=== PATIENT | female | born 1950 | race Caucasian/White ===

== ENCOUNTER 2016-10-28 17:29 | Emergency (ER) | payer MEDICARE, OTHER ==
[~2016-10-28] VITALS: Ht 167.6 cm; Wt 113.0 kg
--- OUTSIDE RECORDS SUMMARY | 2016-10-28 17:12 | XMS REPORT | Continuity of Care Document ---
Author Author [facility] Organization [facility] Address Unknown Phone Unavailable Care Team Providers Care Check Examiner Name Role Phone CAMRON LONG MD PCP [phone] Insurance Providers Payer Name Policy Number Subscriber Name Relationship Medicare A And B [id number] Josefina Burgos 18 Self / Same As Patient Medicare Other [id number] Josefina Burgos 18 Self / Same As Patient [facility] [id number] Josefina Burgos 18 Self / Same As Patient Problems Medical Problems Problem Onset Date Status Fracture of rib 10/10/2013 Active Nausea 10/10/2013 Active Rib pain 10/10/2013 Active Paul's cyst of knee ~03/09/2015 Active Medications Medication Dose Route Sig Days/Qty Instructions Order Date Discontinued Date Status Vit D3 & K/Berberine Hcl/Hops THREE TIMES A DAY 10/10/13 Active Multivitamin DAILY 10/10/13 03/10/15 Discontinued Aspirin DAILY 10/10/13 03/10/15 Discontinued Atorvastatin DAILY 10/10/13 03/10/15 Discontinued Lisinopril (Zestril) DAILY 10/10/13 Active Vit C/Echin Purp/Herb11 DAILY 10/10/13 03/10/15 Discontinued Insulin Lispro Protam/Lispro Human 55 Units SQ WITH BREAKFAST Active Meloxicam DAILY 10/10/13 03/10/15 Discontinued Oxycodone Hcl 10 Mg ORAL EVERY 6 HOURS 20 Qty One po q6hrs prn severe pain 10/10/13 03/10/15 Discontinued Ondansetron 4 Mg ORAL EVERY 6 HOURS 10 Qty One po q6hr prn significant nausea 10/10/13 03/10/15 Discontinued Meloxicam 10 Gm MC DAILY 03/10/15 03/10/15 Discontinued Venlafaxine Hcl 75 Mg GT DAILY 03/10/15 03/10/15 Discontinued Venlafaxine Hcl 150 Mg ORAL DAILY 03/10/15 Active Letrozole 2.5 Mg ORAL DAILY 03/10/15 Active Tramadol Hcl 50 Mg ORAL EVERY 4HRS PRN PAIN 03/10/15 Active Denosumab 120 Mg SQ q 4 weeks 03/10/15 Active Docusate Sodium Unknown Dose ORAL NEEDED PRN CONSTIPATION Active Insulin Lispro Protam/Lispro Human 40 Unit SUBCUTANEOUS WITH SUPPER 03/10/15 Active Lovastatin 10 Mg ORAL DAILY 03/10/15 Active Acetaminophen/Hydrocodone Bitart 1 Tab ORAL EVERY 6 HOURS PRN Active Meloxicam 15 Mg ORAL DAILY 03/10/15 Active Social History No social history. Hospital Discharge Instructions No hospital discharge instructions. Plan of Care Discharge Date 03/10/15 3:24am Instructions/Education Provided Paul's Cyst (ED) Prescriptions See Medications Section Functional Status No functional status results. Allergies, Adverse Reactions, Alerts Allergen Type Severity Reaction Status Last Updated PENICILLIN Allergy Active 10/10/13 Immunizations No immunization records. Vital Signs Acute Vital Signs Vital Response Date/Time Temperature (Fahrenheit) 98.1 Pulse 73 bpm Respirations 20 Results Test Source Date Result Interp. Ref. Range Comments D-Dimer March 10, 2015 1:36am 0.42 ug/mL H 0.00-0.41 Results called to Arsen[facility]Perico read back the results. Called by Meena Gore at 0214 Verified by repeat testing Alanine Aminotransferase (ALT/SGPT) March 10, 2015 1:36am 31 U/L N 30-65 Albumin March 10, 2015 1:36am 3.9 g/dL N 3.4-5.0 Albumin/Globulin Ratio March 10, 2015 1:36am 1.392 N 1.1-1.8 Alkaline Phosphatase March 10, 2015 1:36am 106 U/L N 38-126 Anion Gap March 10, 2015 1:36am 11.8 MEQ/L N 3-15 Aspartate Amino Transf (AST/SGOT) March 10, 2015 1:36am 30 U/L N 15-37 BUN/Creatinine Ratio March 10, 2015 1:36am 22 H 10-20 Basophils # (Auto) March 10, 2015 1:36am 0.1 10^3uL Basophils (%) (Auto) March 10, 2015 1:36am 1 % N 0-2 Blood Urea Nitrogen March 10, 2015 1:36am 20 mg/dL H 7-18 C-Reactive Protein March 10, 2015 1:36am 1.60 mg/dL H 0.0-0.9 CA 27.29 November 07, 2013 12:34pm 21.7 U/mL <=38.0 The testing method is a chemiluminometric immunoassaymanufactured by Siem[employer] and performed on the [employer]'s [employer]. Values obtained with different assay methods or kits may be different and cannot be used interchangeably. Test results cannot be interpreted as absolute evidence for the presence or absence of malignant disease. Test Performed by: [facility] [place] [address] Direct Sales Professional: Fiordaliza Pressley, Ph.D. Calcium Level March 10, 2015 1:36am 9.5 mg/dL N 8.8-10.8 Calcium/Ionized Calcium Ratio March 10, 2015 1:36am 4.3 mg/dL N 3.8-4.6 Calculated Osmolality March 10, 2015 1:36am 270 mosm/L L 280-300 Carbon Dioxide Level March 10, 2015 1:36am 30 mmol/L H 22-29 Carcinoembryonic Antigen November 07, 2013 12:34pm 1.3 ng/mL 0.0-5.0 Normal Ranges For CEA;Males: Non Smokers: <3.4 ng/ml Smokers: <6.2 ng/ml Females: Non Smokers: <2.5 ng/ml Smokers: <4.9 ng/ml Chloride Level March 10, 2015 1:36am 101 mmol/L N 98-108 Cholesterol Level December 11, 2014 8:55am 169 mg/dL N 50-200 Cholesterol/HDL Ratio December 11, 2014 8:55am 3.7 N 0.0-5.0 Creatinine March 10, 2015 1:36am 0.93 mg/dL N 0.6-1.2 Eosinophils # (Auto) March 10, 2015 1:36am 0.3 10^3uL Eosinophils (%) (Auto) March 10, 2015 1:36am 4 % N 0-4 Estimat Glomerular Filtration Rate March 10, 2015 1:36am 73.0 Estimated GFR (Non- March 10, 2015 1:36am 60.3 Folate March 07, 2015 11:04am 13.2 ng/mL 7.0-31.4 Glucose Level March 10, 2015 1:36am 73 mg/dL DN 70-110 HDL Cholesterol December 11, 2014 8:55am 46 mg/dL N 40-60 Hematocrit March 10, 2015 1:36am 37.50 % N 35.00-45.00 Hemoglobin March 10, 2015 1:36am 12.8 g/dL N 12.0-15.5 Hemoglobin A1c March 07, 2015 11:05am 6.3 % H 4.0-6.0 LDL Cholesterol, Calculated December 11, 2014 8:55am 83 mg/dL N 50-130 Lymphocytes # (Auto) March 10, 2015 1:36am 2.6 X10^3 Lymphocytes (%) (Auto) March 10, 2015 1:36am 37 % N 20-46 Magnesium Level March 07, 2015 11:04am 2.2 mg/dL N 1.6-2.3 Mean Corpuscular Hemoglobin March 10, 2015 1:36am 31.4 PG N 26.0-34.0 Mean Corpuscular Hemoglobin Concent March 10, 2015 1:36am 34.1 g/dL N 31.0-37.0 Mean Corpuscular Volume March 10, 2015 1:36am 92 FL N 80-100 Mean Platelet Volume March 10, 2015 1:36am 9.6 FL H 6.0-9.5 Monocytes # (Auto) March 10, 2015 1:36am 0.9 X10^3 Monocytes (%) (Auto) March 10, 2015 1:36am 12 % H 3-11 Neutrophils # (Auto) March 10, 2015 1:36am 3.3 X10^3 Neutrophils (%) (Auto) March 10, 2015 1:36am 47 % L 51-67 Platelet Count March 10, 2015 1:36am 294 10^3uL N 150-450 Potassium Level March 10, 2015 1:36am 3.8 mmol/L N 3.5-5.1 Red Blood Count March 10, 2015 1:36am 4.08 10^6uL N 4.00-5.00 Red Cell Distribution Width March 10, 2015 1:36am 12.5 % N 11.8-15.6 Sodium Level March 10, 2015 1:36am 139 mmol/L N 135-150 Thyroid Stimulating Hormone (TSH) December 11, 2014 8:55am 1.25 UIU/mL N 0.46-4.68 Thyroxine (T4) December 11, 2014 8:55am 5.5 ug/dL 4.8-11.7 Total Bilirubin March 10, 2015 1:36am 0.3 mg/dL N 0.1-1.0 Total Creatine Kinase December 11, 2014 8:55am 109 U/L N 30-135 Total Protein March 10, 2015 1:36am 6.7 g/dL N 6.4-8.5 Triglycerides Level December 11, 2014 8:55am 200 mg/dL H 10-150 Urine Bacteria November 27, 2013 7:30am None seen /HPF Urine Bilirubin November 27, 2013 7:30am Negative Negative Urine Blood November 27, 2013 7:30am Negative Negative Urine Clarity November 27, 2013 7:30am Clear Urine Collection Type November 27, 2013 7:30am Clean catch Urine Color November 27, 2013 7:30am Yellow Urine Glucose (UA) November 27, 2013 7:30am Negative Negative Urine Ketones November 27, 2013 7:30am Negative Negative Urine Leukocyte Esterase November 27, 2013 7:30am Trace H Negative Urine Mucus November 27, 2013 7:30am 4+ H Urine Nitrite November 27, 2013 7:30am Negative Negative Urine Protein November 27, 2013 7:30am Negative Negative Urine RBC November 27, 2013 7:30am 0-2 /HPF Urine Random Microalbumin December 11, 2014 8:55am 2.8 mg/dL H 0.0-1.7 Urine Specific [place] November 27, 2013 7:30am 1.025 1.005-1.030 Urine Squamous Epithelial Cells November 27, 2013 7:30am 5-10 /LPF Urine Urobilinogen November 27, 2013 7:30am 0.2 mg/dL 0.2-1.0 Urine WBC November 27, 2013 7:30am 5-10 /HPF H Urine pH November 27, 2013 7:30am 6.0 5.0 - 8.0 VLDL Cholesterol November 27, 2013 7:30am 34 mg/dL H 0-28 VLDL Cholesterol, Calculated December 11, 2014 8:55am 40 mg/dL N 4.00- 40.00 Vitamin B12 Level March 07, 2015 11:04am 435 pg/mL 213-816 Vitamin D 25-Hydroxy December 11, 2014 8:55am 36 ng/mL 30-74 The desirable level of 25-Hydroxy Vitamin D Total(D2 + D3) is 30-74 ng/mL.A level consistently >200 is potentially toxic. Vitamin D2 December 11, 2014 8:55am <7 ng/mL () Vitamin D3 December 11, 2014 8:55am 36 ng/mL () Volume Urine Centrifuged November 27, 2013 7:30am 12 ml White Blood Count March 10, 2015 1:36am 7.07 10^3uL N 4.0-11.0 Urine Culture Urine-Clean Catch November 27, 2013 7:30am Procedures No known history of procedures. Encounters Encounter Location Date/Time Registered Clinic [facility] 03/10/15 3:25pm Departed Emergency Room [facility] 03/10/15 12:49am Registered Clinic [facility] 03/07/15 11:01am
[~2016-10-28 17:29] MED LIST: ASPI81TA; ATOR10TA; CAL1TABL3 PO; CALC-696 PO; DENO120V SQ; DOCU250C2 PO; DOCU50CA4 PO; HYDR-3702 PO; INSU100V19 SC; INSU100V19 SQ; LETR2.5T5 PO; LORA10TA76 PO; LOVA10TA PO; LSNP10T; MELO-249 PO; MELO10PO MC; MELO15TA14; MULT-954; ONDA4TAB8 PO; OXYC10TA7 PO; POLY17PO6 PO; POTA99TA3 PO; PRM25T PO; PROM25SU10 PR; TRM50T PO; VENL150C PO; VIT1TABL57; VITA400C21 PO; VNL75T GT; [UNRECOGNIZED DRUG - CODE]; [UNRECOGNIZED DRUG - OTHER] PO
--- OUTSIDE RECORDS SUMMARY | 2016-10-28 17:35 | XMS REPORT | Continuity of Care Document ---
Author Author [facility] Organization [facility] Address Unknown Phone Unavailable Care Team Providers Care Credit Union Examiner Name Role Phone CAMRON LONG MD PCP [phone] Insurance Providers Payer Name Policy Number Subscriber Name Relationship Medicare A And B [id number] Josefina Burgos 16 Self / Same As Patient Medicare Other [id number] Josefina Burgos 16 Self / Same As Patient [facility] [id number] Josefina Burgos 16 Self / Same As [...] immunoassaymanufactured by Siemens and performed on the [employer]'s [employer]aur. Values obtained with different assay methods or kits may be different and cannot be used interchangeably. Test results cannot be interpreted as absolute evidence for the presence or absence of malignant disease. Test Performed by: [facility] [place] [address] Advertising Assistant Manager: Fiordaliza Pressley, Ph.D. Calcium Level March 10, [...] 8:55am 2.8 mg/dL H 0.0-1.7 Urine Specific [place] November 27, 2013 7:30am 1.025 1.005-1.030 Urine [...] procedures. Encounters Encounter Location Date/Time Registered Clinic [facility] 03/10/15 3:25pm Departed Emergency Room [facility] 03/10/15 12:49am Registered Clinic [facility] 03/07/15 11:01am
--- NOTE | 2016-10-28 19:22 | NUR ---
Sono tech called by Dayo in radiology
[2016-10-28 19:36] LABS: BASOPHILS % (AUTO) 1 % (0-2); EOSINOPHILS # (AUTO) 0.3 10^3uL; EOSINOPHILS % (AUTO) 4 % (0-4); LYMPHOCYTES # (AUTO) 1.9 X10^3; MEAN CORPUSCULAR HGB CONC 33.2 g/dL (31.0-37.0); MEAN CORPUSCULAR VOLUME 90 FL (80-100); MEAN PLATELET VOLUME 9.3 FL (6.0-9.5); MONOCYTES # (AUTO) 0.8 X10^3; MONOCYTES % (AUTO) 13 % (3-11); NEUTROPHILS # (AUTO) 3.4 X10^3; NEUTROPHILS % (AUTO) 52 % (51-67); PLATELET COUNT 206 10^3uL (150-450); WHITE BLOOD COUNT 6.51 10^3uL (4.0-11.0)
[2016-10-28 19:46] LABS: ALBUMIN 3.8 g/dL (3.4-5.0); ANION GAP 13.6 MEQ/L (3-15); CALCULATED IONIZED CALCIUM 3.9 mg/dL (3.8-4.6); TOTAL PROTEIN 7.1 g/dL (6.4-8.5)
--- NOTE | 2016-10-28 20:34 | Diagnostic Imaging Report ---
INDICATION: Left leg pain. EXAMINATION: Left lower extremity venous ultrasound. FINDINGS: There is normal color Doppler imaging from the external iliac vein to the ankle. Calf compression shows normal augmentation of flow at the popliteal level. No evidence of popliteal cyst. IMPRESSION: No evidence of deep venous thrombosis in the left lower extremity. Dictated by: Dictated on workstation # [id number]
[2016-10-28] MEDS ORDERED: HYDR-3702 PO (20:54)
[2016-10-28 21:22] VITALS: BP 117/50
== END 2016-10-28 21:29 | disposition home or self-care (01) ==
LOC: ED 17:30
DX: M79.662 Pain in left lower leg (principal)
CPT/HCPCS: 36415; 80053; 85025; 85610; 99282; 99283

== ENCOUNTER → 2016-11-15 | Outpatient (CLI) | payer MEDICARE, OTHER ==
[2016-11-15 09:37] LABS: BASOPHILS % (AUTO) 1 % (0-2); EOSINOPHILS # (AUTO) 0.3 10^3uL; EOSINOPHILS % (AUTO) 5 % (0-4); LYMPHOCYTES # (AUTO) 2.3 X10^3; MEAN CORPUSCULAR HEMOGLOBIN 30.5 PG (26.0-34.0); MEAN CORPUSCULAR HGB CONC 34.2 g/dL (31.0-37.0); MEAN CORPUSCULAR VOLUME 89 FL (80-100); MEAN PLATELET VOLUME 9.1 FL (6.0-9.5); MONOCYTES # (AUTO) 0.8 X10^3; MONOCYTES % (AUTO) 12 % (3-11); NEUTROPHILS # (AUTO) 3.7 X10^3; NEUTROPHILS % (AUTO) 50 % (51-67); PLATELET COUNT 181 10^3uL (150-450); WHITE BLOOD COUNT 7.26 10^3uL (4.0-11.0)
[2016-11-15 09:59] LABS: ALBUMIN 3.9 g/dL (3.4-5.0); ANION GAP 15.2 MEQ/L (3-15); CALCULATED IONIZED CALCIUM 3.7 mg/dL (3.8-4.6); MAGNESIUM* 2.2 mg/dL (1.6-2.3); PHOSPHORUS 4.3 mg/dL (2.4-4.9); TOTAL PROTEIN 7.2 g/dL (6.4-8.5)
== END ==
LOC: LAB 09:23
PROVIDERS: ATTEND Internal Medicine Hematology & Oncology
DX: C50.812 Malignant neoplasm of overlapping sites of left female breast (principal); C79.51 Secondary malignant neoplasm of bone
CPT/HCPCS: 36415; 80053; 83615; 83735; 84100; 85025

== ENCOUNTER → 2016-12-21 | Outpatient (CLI) | payer MEDICARE, OTHER ==
[2016-12-21 09:46] LABS: BILIRUBIN,URINE Negative (Negative); CLARITY,URINE Clear; GLUCOSE, URINE (UA) Negative (Negative); LEUKOCYTE ESTERASE ,URINE Trace (Negative); UROBILINOGEN,URINE 0.2 mg/dL (0.2-1.0)
[2016-12-21 09:48] LABS: COLOR,URINE Dark Yellow
[2016-12-21 10:13] LABS: RBC,URINE None Seen /HPF; URINE CENTRIFUGED VOLUME 12 mL
== END ==
LOC: LAB 09:09
PROVIDERS: ATTEND Family Medicine
DX: E78.2 Mixed hyperlipidemia (principal); N39.0 Urinary tract infection, site not specified; G72.0 Drug-induced myopathy; E10.65 Type 1 diabetes mellitus with hyperglycemia; M81.0 Age-related osteoporosis without current pathological fracture; E83.42 Hypomagnesemia; K71.2 Toxic liver disease with acute hepatitis
CPT/HCPCS: 36415; 80061; 81003; 81015; 82043; 82306; 82550; 82977; 83036; 83735; 84436; 84443; 87088

== ENCOUNTER → 2017-01-17 | Outpatient (CLI) | payer MEDICARE, OTHER ==
--- NOTE | 2017-01-19 13:57 | Diagnostic Imaging Report ---
EXAM: Right digital diagnostic mammography, with computer aided detection system (CAD). DATE: January 17, 2017. COMPARISON: January 12, 2016. December 23, 2014. INDICATION: Prior history of left breast cancer status post mastectomy. FINDINGS: There are scattered fibroglandular densities. There are no suspicious findings in the right breast. IMPRESSION: 1. No mammographic evidence of malignancy in the right breast. Recommend annual screening mammography and clinical breast exam. ACR BI-RADS Category 1: Negative. Result letter will be mailed to the patient. Note: At least 10% of breast cancer is not imaged by mammography. Dictated by: Dictated on workstation # [id number]
== END ==
LOC: RAD 09:35
PROVIDERS: ATTEND Family Medicine
DX: Z12.31 Encounter for screening mammogram for malignant neoplasm of breast (principal); I49.8 Other specified cardiac arrhythmias; Z85.3 Personal history of malignant neoplasm of breast; Z90.12 Acquired absence of left breast and nipple
CPT/HCPCS: 93005; G0202

== ENCOUNTER → 2017-02-01 | Outpatient (CLI) | payer MEDICARE, OTHER ==
--- NOTE | 2017-02-01 10:28 | Diagnostic Imaging Report ---
INDICATION: Dyspnea with shortness of breath. History of breast and bone cancer. Comparison with 01/06/2016. FINDINGS: There are blastic changes noted within the thoracic vertebral bodies consistent with metastatic disease. The lungs are well-aerated. No infiltrates are demonstrated. No parenchymal masses are noted. The heart is not enlarged. No hilar adenopathy. No pulmonary edema. No pneumothorax or pleural effusion. IMPRESSION: 1. Known bony metastasis. 2. No acute changes demonstrated. Dictated by: Dictated on workstation # [id number]
[2017-02-01 11:39] LABS: ANION GAP 12.2 MEQ/L (3-15); BUN/CREATININE RATIO 23 (10-20)
--- NOTE | 2017-02-01 13:28 | Diagnostic Imaging Report ---
PROCEDURE: CT angiography of the chest with contrast. TECHNIQUE: Multiple contiguous axial images were obtained through the chest after uneventful bolus administration of intravenous contrast. Reconstructed CTA MIP acquisitions were also performed. INDICATION: Shortness of breath. History of breast CA with known bony metastasis. FINDINGS: The lungs are well aerated. There is a small left basilar pleural effusion. No parenchymal masses are present. No infiltrates. There is good opacification of the aorta and pulmonary arteries. No evidence of aortic aneurysm. No aortic dissection. Pulmonary arteries show no filling defects at this time to indicate pulmonary emboli. No mediastinal or hilar adenopathy of pathologic size. Blastic bony lesions again noted throughout. IMPRESSION: 1. No evidence of pulmonary emboli. 2. Small left basilar pleural effusion present with lungs otherwise clear. The pleural effusion was not present on previous CT chest of 08/18/2016. Dictated by: Dictated on workstation # [id number]
== END ==
LOC: RAD 09:30
PROVIDERS: ATTEND Family Medicine
DX: I49.8 Other specified cardiac arrhythmias (principal); I26.99 Other pulmonary embolism without acute cor pulmonale; R06.00 Dyspnea, unspecified; R79.89 Other specified abnormal findings of blood chemistry; I50.21 Acute systolic (congestive) heart failure; I20.0 Unstable angina
CPT/HCPCS: 36415; 71020; 71275; 80048; 83880; 84484; 85379; Q9967; 93225; 94620

== ENCOUNTER → 2017-02-04 | Outpatient (CLI) | payer MEDICARE, OTHER | LOC: RAD 08:17 | PROVIDERS: ATTEND Family Medicine | DX: I49.8 Other specified cardiac arrhythmias (principal) | CPT/HCPCS: 93306 ==

== ENCOUNTER → 2017-02-07 | Outpatient (CLI) | payer MEDICARE, OTHER ==
[2017-02-07 09:23] LABS: MEAN CORPUSCULAR HEMOGLOBIN 32.4 PG (26.0-34.0); MEAN CORPUSCULAR HGB CONC 32.9 g/dL (31.0-37.0); MEAN CORPUSCULAR VOLUME 98 FL (80-100); MEAN PLATELET VOLUME 9.6 FL (6.0-9.5); PLATELET COUNT 47 10^3uL (150-450); WHITE BLOOD COUNT 9.74 10^3uL (4.0-11.0)
[2017-02-07 09:28] LABS: BAND NEUTROPHILS % 1 % (0-6); EOSINOPHILS % 3 % (0-4); LYMPHOCYTES # 4.3 #; MONOCYTES # 0.1 #; MONOCYTES % 1 % (3-11); NUCLEATED RED BLOOD CELLS 4; RBC MORPH NORMAL (NORMAL); SEGMENTED NEUTROPHILS % 51 % (51-67); TOTAL CELLS COUNTED 100
[2017-02-07 09:41] LABS: ALBUMIN 3.5 g/dL (3.4-5.0); ANION GAP 13.4 MEQ/L (3-15); CALCULATED IONIZED CALCIUM 4.1 mg/dL (3.8-4.6); MAGNESIUM* 1.9 mg/dL (1.6-2.3); TOTAL PROTEIN 6.8 g/dL (6.4-8.5)
== END ==
LOC: LAB 09:09
PROVIDERS: ATTEND Internal Medicine Hematology & Oncology
DX: C50.812 Malignant neoplasm of overlapping sites of left female breast (principal); C79.51 Secondary malignant neoplasm of bone
CPT/HCPCS: 36415; 80053; 83615; 83735; 84100; 85007; 85027

== ENCOUNTER → 2017-02-08 | Outpatient (CLI) | payer MEDICARE, OTHER ==
[2017-02-08 11:50] LABS: MEAN CORPUSCULAR HGB CONC 32.5 g/dL (31.0-37.0); MEAN PLATELET VOLUME 9.6 FL (6.0-9.5); WHITE BLOOD COUNT 10.78 10^3uL (4.0-11.0)
[2017-02-08 12:00] LABS: ABSOLUTE RETIC # 110 10^3uL (22-82); MEAN CORPUSCULAR HEMOGLOBIN 31.8 PG (26.0-34.0); MEAN CORPUSCULAR VOLUME 98 FL (80-100)
[2017-02-08 12:01] LABS: ANISOCYTOSIS SLIGHT; BAND NEUTROPHILS % 2 % (0-6); EOSINOPHILS % 1 % (0-4); MONOCYTES # 0.1 #; MONOCYTES % 1 % (3-11); PLATELET COUNT 49 10^3uL (150-450); RBC MORPH SEE REFERENCE (NORMAL); SEGMENTED NEUTROPHILS % 49 % (51-67); TOTAL CELLS COUNTED 100
[2017-02-08 12:25] LABS: ERYTHROCYTE SEDIMENTATION RT* 98 mm/hr (0-23)
[2017-02-08 21:52] LABS: IRON 185 ug/dL (50-170); UNBOUND IRON CONTENT 86 ug/dl (126-382)
[2017-02-08 22:24] LABS: VITAMIN B 12 1640 pg/mL (213-816)
[2017-02-10 15:04] LABS: KAPPA LIGHT CHAINS SERUM 3.63 mg/dL; LAMBDA LIGHT CHAINS SERUM 1.85 mg/dL (())
== END ==
LOC: LAB 11:22
PROVIDERS: ATTEND Internal Medicine Hematology & Oncology
DX: C50.812 Malignant neoplasm of overlapping sites of left female breast (principal); R11.0 Nausea; R53.83 Other fatigue; R06.02 Shortness of breath
CPT/HCPCS: 36415; 82607; 82728; 82746; 82784; 83010; 83540; 83550; 83615; 83883; 84155; 84443; 85025; 85045; 85610; 85652; 85730; 86140; 86334

== ENCOUNTER → 2017-02-15 | Outpatient (CLI) | payer MEDICARE, OTHER ==
[2017-02-15 16:02] LABS: MEAN CORPUSCULAR HGB CONC 32.5 g/dL (31.0-37.0); MEAN PLATELET VOLUME 8.8 FL (6.0-9.5); PLATELET COUNT 32 10^3uL (150-450)
[2017-02-15 16:33] LABS: MEAN CORPUSCULAR HEMOGLOBIN 32.8 PG (26.0-34.0); MEAN CORPUSCULAR VOLUME 101 FL (80-100)
[2017-02-15 16:35] LABS: WHITE BLOOD COUNT 8.14 10^3uL (4.0-11.0)
[2017-02-15 16:36] LABS: BAND NEUTROPHILS % 8 % (0-6); EOSINOPHILS % 2 % (0-4); LYMPHOCYTES # 2.8 #; MONOCYTES # 0.5 #; MONOCYTES % 6 % (3-11); SEGMENTED NEUTROPHILS % 48 % (51-67); TOTAL CELLS COUNTED 100
[2017-02-15 16:37] LABS: ANISOCYTOSIS MODERATE; NUCLEATED RED BLOOD CELLS 25; POLYCHROMASIA SLIGHT; RBC MORPH SEE REFERENCE (NORMAL)
[2017-02-15 16:52] LABS: ALBUMIN 3.4 g/dL (3.4-5.0); ANION GAP 12.9 MEQ/L (3-15); CALCULATED IONIZED CALCIUM 4.1 mg/dL (3.8-4.6); TOTAL PROTEIN 6.3 g/dL (6.4-8.5)
== END ==
LOC: LAB 15:24
PROVIDERS: ATTEND Internal Medicine Hematology & Oncology
DX: D59.9 Acquired hemolytic anemia, unspecified (principal); D68.59 Other primary thrombophilia
CPT/HCPCS: 36415; 80053; 83010; 85025; 85379; 85384; 85610; 85730; 86850; 86880; 88184; 88185

== ENCOUNTER → 2017-02-16 | Outpatient (CLI) | payer MEDICARE, OTHER | LOC: EMS 05:45 | DX: R06.02 Shortness of breath (principal) ==

== ENCOUNTER → 2017-02-22 | Outpatient (CLI) | payer MEDICARE, OTHER ==
[2017-02-22 15:40] LABS: MEAN CORPUSCULAR HGB CONC 32.3 g/dL (31.0-37.0); MEAN PLATELET VOLUME 10.4 FL (6.0-9.5); PLATELET COUNT 40 10^3uL (150-450)
[2017-02-22 16:14] LABS: MEAN CORPUSCULAR HEMOGLOBIN 32.2 PG (26.0-34.0); MEAN CORPUSCULAR VOLUME 100 FL (80-100)
[2017-02-22 16:16] LABS: WHITE BLOOD COUNT 10.04 10^3uL (4.0-11.0)
[2017-02-22 16:26] LABS: ANISOCYTOSIS MODERATE; BAND NEUTROPHILS % 6 % (0-6); EOSINOPHILS % 1 % (0-4); LYMPHOCYTES # 4.9 #; MONOCYTES # 0.6 #; MONOCYTES % 6 % (3-11); NUCLEATED RED BLOOD CELLS 14; RBC MORPH SEE REFERENCE (NORMAL); SEGMENTED NEUTROPHILS % 38 % (51-67); TOTAL CELLS COUNTED 100
== END ==
LOC: LAB 14:28
PROVIDERS: ATTEND Internal Medicine Hematology & Oncology
DX: C50.812 Malignant neoplasm of overlapping sites of left female breast (principal); C79.51 Secondary malignant neoplasm of bone; R53.83 Other fatigue
CPT/HCPCS: 36415; 82947; 85025

== ENCOUNTER → 2017-02-25 | Outpatient (CLI) | payer MEDICARE, OTHER ==
[2017-02-25 10:53] LABS: MEAN CORPUSCULAR HGB CONC 33.2 g/dL (31.0-37.0); MEAN CORPUSCULAR VOLUME 97 FL (80-100); MEAN PLATELET VOLUME 12.1 FL (6.0-9.5)
[2017-02-25 11:12] LABS: MEAN CORPUSCULAR HEMOGLOBIN 32.3 PG (26.0-34.0)
[2017-02-25 11:14] LABS: WHITE BLOOD COUNT 5.75 10^3uL (4.0-11.0)
[2017-02-25 11:15] LABS: PLATELET COUNT 23 10^3uL (150-450)
[2017-02-25 11:16] LABS: BAND NEUTROPHILS % 5 % (0-6); EOSINOPHILS % 0 % (0-4); LYMPHOCYTES # 2.5 #; MONOCYTES # 0.2 #; MONOCYTES % 4 % (3-11); SEGMENTED NEUTROPHILS % 47 % (51-67); TOTAL CELLS COUNTED 100
[2017-02-25 11:17] LABS: ANISOCYTOSIS MODERATE; NUCLEATED RED BLOOD CELLS 11; RBC MORPH SEE REFERENCE (NORMAL)
[2017-02-25 11:59] LABS: ALBUMIN 3.1 g/dL (3.4-5.0); ANION GAP 10.9 MEQ/L (3-15); CALCULATED IONIZED CALCIUM 4.3 mg/dL (3.8-4.6); TOTAL PROTEIN 6.2 g/dL (6.4-8.5)
== END ==
LOC: LAB 10:39
PROVIDERS: ATTEND Internal Medicine Hematology & Oncology
DX: C50.812 Malignant neoplasm of overlapping sites of left female breast (principal); C79.51 Secondary malignant neoplasm of bone
CPT/HCPCS: 36415; 80053; 83735; 85025

== ENCOUNTER 2017-02-28 10:40 | Outpatient (RCR) | payer MEDICARE, OTHER ==
[2017-02-28 11:00] LABS: BASOPHILS % (AUTO) 0 % (0-2); EOSINOPHILS # (AUTO) 0.1 10^3uL; EOSINOPHILS % (AUTO) 3 % (0-4); LYMPHOCYTES # (AUTO) 1.7 X10^3; MEAN CORPUSCULAR HGB CONC 33.3 g/dL (31.0-37.0); MEAN CORPUSCULAR VOLUME 97 FL (80-100); MEAN PLATELET VOLUME 11.5 FL (6.0-9.5); MONOCYTES # (AUTO) 0.1 X10^3; MONOCYTES % (AUTO) 3 % (3-11); NEUTROPHILS # (AUTO) 1.8 X10^3; NEUTROPHILS % (AUTO) 47 % (51-67)
[2017-02-28 11:01] LABS: MEAN CORPUSCULAR HEMOGLOBIN 32.5 PG (26.0-34.0)
[2017-02-28 11:04] LABS: PLATELET COUNT 19 10^3uL (150-450)
== END 2017-03-09 19:20 | disposition home or self-care (01) ==
LOC: LAB 10:40
PROVIDERS: ATTEND Internal Medicine Hematology & Oncology
DX: C50.812 Malignant neoplasm of overlapping sites of left female breast (principal); C79.51 Secondary malignant neoplasm of bone
CPT/HCPCS: 36415; 85025

== ENCOUNTER 2017-03-02 17:20 | Outpatient (RCR) | payer MEDICARE, OTHER ==
[2017-03-02] VITALS (14 sets, daily range): BP systolic 111–144; BP diastolic 48–63
[2017-03-02 09:41] LABS: MEAN CORPUSCULAR HGB CONC 34.2 g/dL (31.0-37.0); MEAN CORPUSCULAR VOLUME 95 FL (80-100); MEAN PLATELET VOLUME 11.7 FL (6.0-9.5); PLATELET COUNT 32 10^3uL (150-450); WHITE BLOOD COUNT 4.73 10^3uL (4.0-11.0)
[2017-03-02 09:52] LABS: MEAN CORPUSCULAR HEMOGLOBIN 32.3 PG (26.0-34.0)
[2017-03-02 09:54] LABS: BAND NEUTROPHILS % 4 % (0-6); EOSINOPHILS % 2 % (0-4); LYMPHOCYTES # 2.4 #; MONOCYTES # 0.1 #; MONOCYTES % 2 % (3-11); SEGMENTED NEUTROPHILS % 38 % (51-67)
[2017-03-02 09:55] LABS: ANISOCYTOSIS SLIGHT; NUCLEATED RED BLOOD CELLS 2; POLYCHROMASIA SLIGHT; RBC MORPH SEE REFERENCE (NORMAL); TOTAL CELLS COUNTED 100
[2017-03-02] MEDS ORDERED: ACETAMINOPHEN 325 MG TAB (TYLENOL) PO ONE (18:00)
[2017-03-02] MEDS ORDERED: LMX 4 KIT (LIDOCAINE 4% 5 GM TUBE/TRANSPARENT DRESSING) TOP PRN (18:00)
[2017-03-02] MEDS ORDERED: SODIUM CHLORIDE FLUSH 3 ML SYR IV PRN (18:00)
[2017-03-02] MEDS ORDERED: diphenhydrAMINE 25 MG (BENADRYL) TABLET PO ONE (18:00)
[2017-03-02] MEDS ORDERED: NS 250 ML (IVPB) BAG IV SCH (18:00)
--- NOTE | 2017-03-02 18:05 | NUR ---
Patient arrived to room 341 under her own power wih spouse at her side. Patient is alert and oriented. Patient is to receive 2 units of PRBC.
--- NOTE | 2017-03-02 18:20 | NUR ---
Patients has a fairly ner power port solo cath in the right upper cheswt. Port was hard to access. several attempts were necessary before blood return was acheived.
[2017-03-02] MEDS: SODIUM CHLORIDE FLUSH 10 ML SYR IV PRN ×2 (23:11→23:12)
--- NOTE | 2017-03-02 23:20 | NUR ---
SECOND UNIT OF PRBCS COMPLETED AT 2040. SECOND UNIT IS EN ROUTE TO UNIT. PATIENT TOLERATED INFUSION OF FIRST UNIT WELL.
--- NOTE | 2017-03-02 23:20 | NUR ---
SECOND UNIT OF PRBCS STARTED AT 2100. SECOND UNIT OF PRBCS COMPLETED AT 2257. PATIENT TOLERATED WELL. PORT FLUSHED WITH 20 ML NS FLUSH AND 500 UNITS HEPARIN (PER PROTOCOL). PORT DEACCESSED PRIOR TO DISMISSAL. PATIENT ESCORTED FROM UNIT FOR DISMISSAL VIA WHEELCHAIR ACCOMPANIED BY ALMAS CROFT RN.
== END 2017-03-02 23:15 | disposition home or self-care (01) ==
LOC: EUOP 17:20 → ICU 17:21 → EUOP 23:10
PROVIDERS: ATTEND Internal Medicine Hematology & Oncology
DX: C50.812 Malignant neoplasm of overlapping sites of left female breast (principal); C79.51 Secondary malignant neoplasm of bone; D64.9 Anemia, unspecified
CPT/HCPCS: 36415; 36430; 85025; 86850; 86880; 86900; 86901; 86920; A9270; J1642; J7050; P9040

== ENCOUNTER → 2017-03-08 | Outpatient (CLI) | payer MEDICARE, OTHER ==
[2017-03-08 11:44] LABS: MEAN CORPUSCULAR VOLUME 92 FL (80-100); WHITE BLOOD COUNT 2.38 10^3uL (4.0-11.0)
[2017-03-08 12:38] LABS: ALBUMIN 3.2 g/dL (3.4-5.0); ANION GAP 11.1 MEQ/L (3-15); CALCULATED IONIZED CALCIUM 4.4 mg/dL (3.8-4.6); MAGNESIUM* 2.1 mg/dL (1.6-2.3); TOTAL PROTEIN 6.2 g/dL (6.4-8.5)
[2017-03-08 13:00] LABS: MEAN CORPUSCULAR HEMOGLOBIN 31.4 PG (26.0-34.0)
[2017-03-08 13:01] LABS: BAND NEUTROPHILS % 2 % (0-6); EOSINOPHILS % 0 % (0-4); LYMPHOCYTES # 1.6 #; MONOCYTES # 0.3 #; MONOCYTES % 14 % (3-11); PLATELET COUNT 21 10^3uL (150-450); SEGMENTED NEUTROPHILS % 16 % (51-67); TOTAL CELLS COUNTED 100
[2017-03-08 13:02] LABS: ANISOCYTOSIS SLIGHT; HYPOCHROMASIA SLIGHT; RBC MORPH SEE REFERENCE (NORMAL)
== END ==
LOC: LAB 11:31
PROVIDERS: ATTEND Internal Medicine Hematology & Oncology
DX: C50.812 Malignant neoplasm of overlapping sites of left female breast (principal); C79.51 Secondary malignant neoplasm of bone
CPT/HCPCS: 36415; 80053; 83615; 83735; 84100; 85007; 85027